=== PATIENT | female | born 1985 | race Caucasian/White ===

== ENCOUNTER 2017-04-06 02:55 | Inpatient (IN) | payer OTHER ==
[2017-04-06] MEDS ORDERED: ELECTROLYTE-148 SOLN 1,000 ML IV SCH (07:30)
[2017-04-06] MEDS ORDERED: AMPICILLIN - 2 GM in SODIUM CHLORIDE 100 ML IVPB ONE (08:10)
[2017-04-06 08:16] LABS: BASOPHIL 0.6 % (0-2.0); EOSINOPHIL 0.7 % (0-4.5); MCH 28.4 pg (25.7-33.7); MCHC 33.3 g/dl (32.0-36.0); MEAN CELL VOLUME 85.2 fl (80-96); MEAN PLT VOLUME 8.5 fl (7.5-11.1); NEUTROPHILS 74.4 % (42.8-82.8); PLATELET COUNT 166 K/MM3 (134-434); RDW 16.5 % (11.6-15.6); WHITE BLOOD COUNT 8.4 K/mm3 (4.0-10.0)
[2017-04-06] MEDS ORDERED: PROMETHAZINE HCL 25 MG/1 ML VIAL IVPUSH ONE ×2 (08:30→08:42)
[2017-04-06] MEDS ORDERED: BUTORPHANOL TARTRATE 1 MG/ML VIAL IVPUSH ONE ×2 (08:30→08:42)
[2017-04-06 08:41] LABS: ANION GAP 10 (8-16); CALCIUM 8.5 mg/dL (8.5-10.1); CO2 21 mmol/L (21-32); CREATININE 0.7 mg/dL (0.55-1.02); GLUCOSE,RANDOM 83 mg/dL (74-106)
--- NOTE | 2017-04-06 08:51 | HP ---
Past Medical History - Primary Care Physician PCP:: Julio César Sarabia - Admission Chief Complaint: 41.6 weeks, labor History of Present Illness: 31 yo f g1 po 41.6 weeks gestation c/o contraction since 2 am today, no rom, has bloody discharge .cx 2 cm 80 vx -2 mi, fhr cta 1, contraction regular, admitted in labor , care no complication History Source: Patient Limitations to Obtaining History: No Limitations - Past Medical History ...: 1 ...Para: 0 ...Term: 0 ...: 0 ...Spon : 0 ...Induced : 0 ...LMP: 06/17/16 ... Weeks Gestation by Dates: 41.6 ...EDC by Dates: 03/24/17 ...EDC by Sono: 03/29/17 - Past Surgical History Hx Myomectomy: No Hx Transabdominal Cerclage: No - Smoking History Have you smoked in the past 12 months: No - Alcohol/Substance Use Hx Alcohol Use: No History of Substance Use: reports: None - Social History Usual Living Arrangement: Yes: With Spouse Home Medications - Allergies Allergies/Adverse Reactions: Allergies Allergy/AdvReac Type Severity Reaction Status Date / Time No Known Allergies Allergy Verified 04/06/17 08:33 - Home Medications Home Medications: Ambulatory Orders Vit #108/Iron/FA [ One Tablet] 1 tab PO DAILY 04/06/17 Review of Systems - Review of Systems Constitutional: reports: No Symptoms Eyes: reports: No Symptoms HENT: reports: No Symptoms Neck: reports: No Symptoms Cardiovascular: reports: No Symptoms Respiratory: reports: No Symptoms Gastrointestinal: reports: No Symptoms Genitourinary: reports: No Symptoms Breasts: reports: No Symptoms Reported Musculoskeletal: reports: No Symptoms Integumentary: reports: No Symptoms Neurological: reports: No Symptoms Endocrine: reports: No Symptoms Hematology/Lymphatic: reports: No Symptoms Psychiatric: reports: No Symptoms Physical Exam - Maternity Vital Signs: Vital Signs Temperature 98.2 F 04/06/17 04:15 Pulse Rate 102 H 04/06/17 04:15 Respiratory Rate 20 04/06/17 04:15 Blood Pressure 120/79 04/06/17 04:15 O2 Sat by Pulse Oximetry (%) Constitutional: Yes: Well Nourished, No Distress, Calm Eyes: Yes: WNL, Conjunctiva Clear, EOM Intact HENT: Yes: WNL, Atraumatic, Normocephalic Neck: Yes: WNL, Supple, Trachea Midline Cardiovascular: Yes: WNL, Regular Rate and Rhythm Breast(s): Yes: WNL - Abdominal Exam/OB Fundal Height: 40 Number of Fetuses: Single Presentation: Vertex Contractions: Yes Regularity: Regular Intensity: Mod/Strong Monitor Mode: External Heart Rate Location: [facility] Category: I Accelerations: Uniform Decelerations: None - Vaginal Exam/OB Vaginal Bleediing: Bloody Show Speculum Exam: No Dilatation (cm): 2 cm Effacement (%): 80 Amniotic Membrane Status: Intact Presentation: Vertex/Position Station: -2 - Physical Exam Edema: Yes Edema: LLE: Trace, RLE: Trace Deep Tendon Reflex Grade: Normal +2 Psychiatric: Yes: Alert - Labs Lab Results: CBC, BMP 04/06/17 08:00 Hemorrhage Risk Assessment - Risk Factors Medium Risk Factors: Yes: None High Risk Factors: Yes: None Risk Score: 1 Risk Level: Medium Risk Problem List - Problems (1) with 41 completed weeks gestation Code(s): Z3A.41 - 41 WEEKS GESTATION OF (2) Labor established Code(s): DOU1019 - Assessment/Plan admit, hear monitoring, pain management
[2017-04-06 08:55] LABS: INR 0.89 (0.82-1.09); PROTHROMBIN TIME (PATIENT) 10.1 SEC (9.98-11.88)
[2017-04-06 08:58] LABS: ACTIVATED PTT 25.5 SECONDS (26.9-34.4)
[2017-04-06 09:21] VITALS: BMI 39.1
[2017-04-06] MEDS ORDERED: AMPICILLIN - 1 GM in SODIUM CHLORIDE 100 ML IVPB SCH (12:10)
[2017-04-06] MEDS: AMPICILLIN - 1 GM in SODIUM CHLORIDE 100 ML IVPB SCH ×3 (12:45→20:45)
[2017-04-06] MEDS ORDERED: FENTANYL/BUPIVACAINE/NS/PF - PCEA - 50 ML DISP.SYRIN EP SCH (12:45)
--- NOTE | 2017-04-06 17:57 | PN ---
Ante-Partal Exam - Subjective Subjective: No complaints. No contractions. The pt is s/p Epidural Vital Signs: Vital Signs Temperature 98.2 F 04/06/17 17:01 Pulse Rate 84 04/06/17 16:30 Respiratory Rate 18 04/06/17 16:30 Blood Pressure 103/51 04/06/17 16:30 O2 Sat by Pulse Oximetry (%) 96 04/06/17 16:30 Bleeding: No Headache: No Visual changes: No Right upper quadrant pain: No Pain (scale 1-10): 0 - Contractions Contractions: No Intensity: Unaware Monitor Mode: External - Exam during Labor Heart Rate: 140 Variability: Moderate Heart Rate Location: Midline Category: I Monitor Accelerations: Present Monitor Decelerations: None Exam: Vaginal Dilatation (cm): 5 Effacement (%): 80 Amniotic Membrane Status: Intact Presentation: Vertex Station: -4 Remarks: Adequate gynecoid pelvimetry, EFW ~3700gm - Intrapartum Hemorrhage Risk Medium Risk Factors: None High Risk Factors: None Risk Score: 0 Risk Level: Low Risk - Assessment/Plan Assessment/Plan: 31yo P0 with at 41w1d admitted with spontaneous labor. The pt is s/p epidural and all contractions stopped now. The fetus with Category I tracing. Adequate pelvimetry. We discussed the tx options with the pt and her . I explained the options of expectant management awaiting spontaneous ctx/labor, augmenting ctx's with pitocin, and elective section. The risks of uterine tachysystole, distress, uterine rupture, need for emergency C/S, hemorrhage, infection, scarring, etc. were discussed. We also discussed the risks of meconium aspiration and shoulder dystocia. Plan to augment contractions with pitocin. Risks, benefits, alternatives of pitocin discussed.
[2017-04-06] MEDS ORDERED: OXYTOCIN 15 UNITS/ LR 250 ML 250 ML IVPB SCH (18:00)
[2017-04-06] MEDS ORDERED: TUBERCULIN PPD 5 TU/0.1ML SYRINGE (IN PATIENT USE ONLY) ID ONE (19:30)
--- NOTE | 2017-04-06 20:28 | PN ---
Ante-Partal Exam - Subjective Subjective: feels some ctx and pressure Vital Signs: Vital Signs Temperature 99.7 F H 04/06/17 19:00 Pulse Rate 84 04/06/17 19:45 Respiratory Rate 20 04/06/17 19:45 Blood Pressure 121/63 04/06/17 19:45 O2 Sat by Pulse Oximetry (%) 100 04/06/17 19:45 Bleeding: No Headache: No Visual changes: No Right upper quadrant pain: No - Contractions Contractions: Yes Regularity: Regular Intensity: Moderate Monitor Mode: External - Exam during Labor Heart Rate: 140 Variability: Moderate Heart Rate Location: Midline Category: I Monitor Accelerations: Present Monitor Decelerations: None Exam: Vaginal Dilatation (cm): 6 Effacement (%): 100 Amniotic Membrane Status: Intact Presentation: Vertex Station: -2 - Assessment/Plan Assessment/Plan: 31 yo P0 @ 40 weeks now in active labor, comfortable with epidural s/p 4 doses of Ampicillin, AROM for augmentation Will reevaluate in 2 hours Pitocin @ 7mU /min Will request Epidural top off as needed
[2017-04-06] MEDS ORDERED: BENZOCAINE 20% 57 GM BOTTLE TP PRN (22:58)
[2017-04-06] MEDS ORDERED: WITCH HAZEL 50% (TUCKS) 40 PAD/JAR PAD TP PRN (22:58)
[2017-04-06] MEDS ORDERED: BENZOCAINE 28 GM HEMORRHOIDAL OINTMENT TP PRN (22:58)
[2017-04-06] MEDS ORDERED: BISACODYL 10 MG SUPP.RECT RC PRN (22:58)
[2017-04-06] MEDS ORDERED: METHYLERGONOVINE MALEATE 0.2 MG/1 ML AMP IM PRN (22:58)
[2017-04-06] MEDS ORDERED: D5W-LR W/ 20 UNITS OXYTOCIN 1,000 ML IV SCH (23:00)
--- NOTE | 2017-04-06 23:08 | PN ---
Delivery - Delivery Vaginal Delivery: No Problems Episiotomy/Laceration: Midline, 2nd degree EBL (cc): 350 Delivery, Single - Stages of Labor Date 1st Stage Initiatied: 04/06/17 Time 1st Stage Initiated: 06:00 Date 2nd Stage Initiated: 04/06/17 Time 2nd Stage Initiated: 22:00 Date of Delivery: 04/06/17 Time of Delivery: 22:27 Date Placenta Delivered: 04/06/17 Time Placenta Delivered: 22:32 Placenta: Yes: Spontaneous - Condition of Infant Gender: Male Position: OA - 1 Minute Total Score: 9 5 Minutes Total Score: 9 - Feeding Plan Initial Plan: Exclusive throughout hospitalization Remarks - Remarks Remarks: Uncomplicated head and shoulder delivery; episiotomy repaired with 2-0 Chromic
[2017-04-07] MEDS: IBUPROFEN 600 MG TABLET (FP) PO PRN ×2 (01:20→21:11)
[2017-04-07] MEDS: ACETAMINOPHEN 325 MG TABLET (FP) PO PRN ×2 (01:20→21:11)
[2017-04-07 07:29] LABS: BASOPHIL 0.1 % (0-2.0); EOSINOPHIL 0.3 % (0-4.5); MCH 28.5 pg (25.7-33.7); MCHC 32.9 g/dl (32.0-36.0); MEAN CELL VOLUME 86.8 fl (80-96); MEAN PLT VOLUME 8.5 fl (7.5-11.1); NEUTROPHILS 77.5 % (42.8-82.8); PLATELET COUNT 158 K/MM3 (134-434); RDW 16.9 % (11.6-15.6); WHITE BLOOD COUNT 11.7 K/mm3 (4.0-10.0)
[2017-04-07] MEDS: FERROUS SO4 325 MG TABLET (FP) PO SCH ×2 (08:27→17:22)
--- NOTE | 2017-04-07 08:34 | PN ---
Post Progress Note - Subjective Subjective: Voiding, ambulating, no heavy bleeding Post Day: 1 Type of Delivery: Vital Signs: Vital Signs Temperature 98.2 F 04/07/17 05:00 Pulse Rate 85 04/07/17 05:00 Respiratory Rate 20 04/07/17 05:00 Blood Pressure 126/59 04/07/17 05:00 O2 Sat by Pulse Oximetry (%) 100 04/06/17 23:45 Breast Exam: Yes: Soft Uterus: Yes: Fundus Firm Abdomen/GI: Yes: Tolerating PO Lochia: Yes: Rubra Lochia, amount: Small Extremities: Yes: Calves non-tender Perineum: Yes: Episiotomy - Labs Labs: CBC WBC 11.7 K/mm3 (4.0-10.0) H D 04/07/17 06:30 RBC 3.79 M/mm3 (3.60-5.2) 04/07/17 06:30 Hgb 10.8 GM/dL (10.7-15.3) 04/07/17 06:30 Hct 32.9 % (32.4-45.2) 04/07/17 06:30 MCV 86.8 fl (80-96) 04/07/17 06:30 MCH 28.5 pg (25.7-33.7) 04/07/17 06:30 MCHC 32.9 g/dl (32.0-36.0) 04/07/17 06:30 RDW 16.9 % (11.6-15.6) H 04/07/17 06:30 Plt Count 158 K/MM3 (134-434) 04/07/17 06:30 MPV 8.5 fl (7.5-11.1) 04/07/17 06:30 Neutrophils % 77.5 % (42.8-82.8) 04/07/17 06:30 Lymphocytes % 15.6 % (8-40) 04/07/17 06:30 Monocytes % 6.5 % (3.8-10.2) 04/07/17 06:30 Eosinophils % 0.3 % (0-4.5) 04/07/17 06:30 Basophils % 0.1 % (0-2.0) 04/07/17 06:30 Assessment/Plan 31yo P1 s/p VSS, Afibrile H/H is stable Doing well Follow screen to decide if RhoGam is needed Encouraged Not interested in Circumcision cont routine PP care
[2017-04-07] MEDS: PRENATAL VITAMINS W/ FOLIC ACID TABLET (FP) PO SCH (10:09)
[2017-04-07] MEDS ORDERED: SENNOSIDES/DOCUSATE COMBO (SENNA PLUS) TABLET (UD) PO PRN (22:00)
[2017-04-08] MEDS: FERROUS SO4 325 MG TABLET (FP) PO SCH (08:29)
--- NOTE | 2017-04-08 09:01 | DS ---
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 Vital Signs: Vital Signs Temperature 97.9 F 04/07/17 22:00 Pulse Rate 81 04/07/17 22:00 Respiratory Rate 20 04/07/17 22:00 Blood Pressure 120/75 04/07/17 22:00 O2 Sat by Pulse Oximetry (%) 100 04/06/17 23:45 Constitutional: Yes: Well Nourished, No Distress, Calm Eyes: Yes: WNL, Conjunctiva Clear, EOM Intact HENT: Yes: WNL, Atraumatic, Normocephalic Neck: Yes: WNL, Supple, Trachea Midline Cardiovascular: Yes: WNL, Regular Rate and Rhythm Respiratory: Yes: WNL, Regular, CTA Bilaterally Gastrointestinal: Yes: WNL, Normal Bowel Sounds, Soft, Abdomen, Obese ...Rectal Exam: Yes: Deferred Renal/: Yes: WNL External Genitalia: Yes: Normal Internal Exam Deferred: Yes ....Post : Yes: Uterus firm, Uterus non-tender, Slight lochia rubra Breast(s): Yes: WNL Musculoskeletal: Yes: WNL Extremities: Yes: WNL Edema: LLE: Trace, RLE: Trace Integumentary: Yes: WNL Neurological: Yes: WNL, Alert, Oriented ...Motor Strength: WNL Psychiatric: Yes: WNL, Alert, Oriented Labs: CBC, BMP 04/07/17 06:30 04/06/17 08:00 Delivery - Delivery Vaginal Delivery: No Problems, Spontaneous Type of Anesthesia: Local, Epidural Episiotomy/Laceration: Midline EBL (cc): 350 Delivery, Single - Stages of Labor Date 1st Stage Initiatied: 04/06/17 Time 1st Stage Initiated: 06:00 Date 2nd Stage Initiated: 04/06/17 Time 2nd Stage Initiated: 22:00 Date of Delivery: 04/06/17 Time of Delivery: 22:27 Time Placenta Delivered: 22:32 Placenta: Yes: Spontaneous - Condition of Compilation Clerk/Anatomy Teacher Present: No Gender: Male Weight: 3.912 kg Position: OA Total Hours ROM (Hrs/Mins): 2h24m - 1 Minute Total Score: 9 5 Minutes Total Score: 9 - Robards Feeding Plan Initial Plan: Exclusive throughout hospitalization Discharge Summary Reason For Visit: LABOR Current Active Problems Labor established (Acute) with 41 completed weeks gestation (Acute) Procedures: Principal: Other Procedures: Labor augmentation Hospital Course: Normal recovery Condition: Good - Instructions Diet, Activity, Other Instructions: Physical activity Resume your normal everyday activity as tolerated no heavy lifting or exercise until seen by your surgeon. You may walk unlimited boyd of and climb stairs. You may resume driving the car when you feel safe and comfortable behind the wheel. No sexual activity as instructed. Wound care If you have a bandage, leave it on, and keep dry for 48-72 hours. After that time discard the outer bandage. If they are tapes on the skin under the out of bandage leave them in place. They will peel off in the next 7 to 10 days. Do Not Peel them off. You may shower the day after surgery. If there are tapes present on the skin, you may shower over them. Diet There are no dietary restrictions. Eat healthy, high-fiber foods. Drink 6 to 8 glasses of liquid each day. This will assist in keeping your bowels are regular. Pain management You may take Tylenol or acetaminophen or Ibuprofen (for example, Motrin, Advil etc.) from my pain prescription medication is ordered should be taken as prescribed for moderate to severe pain. Call MD for any of the following: Severe pain not relieved by medication Fever of 101 or higher Excessive bleeding or drainage on dressing Inability to urinate Referrals: Yuni Donis MD [Staff Physician] - Disposition: HOME - Home Medications Comprehensive Discharge Medication List: Ambulatory Orders Vit #108/Iron/FA [ One Tablet] 1 tab PO DAILY 04/06/17
[2017-04-08 09:13] VITALS: BP 136/62; PULSE 69; TEMP 98.2
[2017-04-08] MEDS: PRENATAL VITAMINS W/ FOLIC ACID TABLET (FP) PO SCH (09:50)
== END 2017-04-08 13:30 | disposition home or self-care (01) | DRG 775 ==
LOC: JDEL 02:55 → JLDR 07:27 → J3W 04-07 00:52
PROVIDERS: ADMIT Obstetrics & Gynecology; ATTEND Obstetrics & Gynecology
PROC: 10E0XZZ Delivery of Products of Conception, External Approach (ICD-10-PCS; principal; 2017-04-06)
PROC: 10907ZC Drainage of Amniotic Fluid, Therapeutic from Products of Conception, Via Natural or Artificial Opening (ICD-10-PCS; 2017-04-06)
PROC: 0W8NXZZ Division of Female Perineum, External Approach (ICD-10-PCS; 2017-04-06)
DX: O48.0 Post-term pregnancy (principal); Z3A.41 41 weeks gestation of pregnancy; Z37.0 Single live birth; E66.8 Other obesity; Z68.39 Body mass index [BMI] 39.0-39.9, adult
CPT/HCPCS: 36415; 59025; 59409; 80048; 85025; 85461; 85610; 85730; 86593; 86850; 86900; 86901